=== PATIENT | female | born 1975 | race African-American/Black ===

== ENCOUNTER 2025-02-05 11:34 | Emergency (ER) | payer OTHER ==
[2025-02-05 12:36] LABS: BHCG - Serum Negative (NEGATIVE); Pregs Control Background? CLEAR/WHITE (CLR/WHITE); Pregs Control Bar Appear? YES (CONTROL BAR)
[2025-02-05 12:39] LABS: INR-International Normal Ratio 0.9; PTT 23.5 sec (22.0-33.0); Prothrombin Time 10.2 sec (9.5-12.1)
[2025-02-05 12:41] LABS: #Basophils 0.06 10x3/uL (0.0-0.2); #Eosinophils 0.03 10x3/uL (0.0-0.5); #Monocytes 0.35 10x3/uL (0.0-1.1); #Neutrophils 6.18 10x3/uL (1.5-8.4); %Basophils 0.8 % (0.0-2.0); %Eosinophils 0.4 % (0.0-6.0); %Lymphocytes 14.0 % (18.0-47.0); %Monocytes 4.5 % (0.0-10.0); %Neutrophils 80.0 % (40.0-75.0); Hematocrit 31.0 % (34.9-44.5); Hemoglobin 9.4 g/dL (12.0-15.5); Mean Corpuscular Hemoglobin 24.5 pg (27.0-33.0); Mean Corpuscular Volume 80.7 fL (81.6-98.3); Platelet Count 166 10x3/uL (150-450); Red Blood Cell (RBC) Count 3.84 10x6/uL (3.90-5.03); White Blood Cell (WBC) Count 7.72 10x3/uL (3.5-10.5)
[2025-02-05 12:43] LABS: ALT (SGPT) 9 U/L (Less than 34); AST (SGOT) 15 U/L (11-34); Albumin 3.5 g/dL (3.1-4.5); Alkaline Phosphatase 46 U/L (40-110); Anion Gap 10 mmol/L (10-20); BUN (Urea Nitrogen) 10 mg/dL (9.8-20.1); Bilirubin, Total 0.4 mg/dL (0.3-1.2); Calc. Creatinine Clearance 0 mL/min (70-130); Calcium 9.2 mg/dL (7.8-10.44); Carbon Dioxide 25 mmol/L (22-29); Chloride 107 mmol/L (98-107); Globulin 3.7 g/dL (2.4-3.5); Glucose 95 mg/dL (70-105); Potassium 4.1 mmol/L (3.5-5.1); Sodium 138 mmol/L (136-145)
[2025-02-05] MEDS ORDERED: Ketorolac Tromethamine 30 MG (1 mL) VIAL ONE (13:49)
[2025-02-05] MEDS ORDERED: Metoclopramide HCl 10 MG (2 mL) VIAL ONE (13:49)
[2025-02-05 14:05] LABS: Anisocytosis MARKED = >30 cells (100X) (0-5/hpf); Microcytosis MODERATE=15-30 cells (100X) (0-5/hpf); Ovalocytes SLIGHT = 2-5 cells (100X) (0-1/hpf); Poikilocytosis SLIGHT = 6-15 cells (100X) (0-5/hpf); Polychromasia SLIGHT = 2-3 cells (100X) (0-2/hpf)
== END 2025-02-05 15:03 | disposition home or self-care (01) ==
LOC: CSHERS 11:34
DX: G43.909 Migraine, unspecified, not intractable, without status migrainosus (principal); N93.9 Abnormal uterine and vaginal bleeding, unspecified; I10 Essential (primary) hypertension
CPT/HCPCS: 80053; 84703; 85025; 85610; 85730; 86850; 86900; 86901; 96365; 96375; J1885; J2765